=== PATIENT | male | born 1960 | race African-American/Black ===

== ENCOUNTER 2024-12-18 06:31 | Inpatient (IN) | payer OTHER, MEDICAID ==
[2024-12-18] VITALS (8 sets, daily range): BP systolic 115–153; BP diastolic 53–67; PULSE 22–94; RESP 18–20; TEMP 97.6–98.2; O2SAT 74–100
[~2024-12-18] VITALS: Ht 185.4 cm; Wt 105.5 kg
[2024-12-18] MEDS ORDERED: ALBUTEROL SULF 2.5 MG/0.5ML(0.5%) NEB SOLN ONE (06:33)
[2024-12-18] MEDS ORDERED: IPRATROPIUM BROM 0.5 MG/2.5ML INH SOL ONE (06:34)
--- NOTE | 2024-12-18 06:42 | ED.PDOC ---
SOB-HPI HPI Comments 64 y.o male with PMHx of COPD, presents to the ED for a chief complaint of SOB associated with a productive cough and bilateral leg swelling that started one week ago. Rapid response page was activated at the main lobby entrance where patient entered, was found with an SPO2 of 82% on room air and was placed on a breathing treatment immediately by the respiratory team. Patient does admit to smoking tobacco and denies any substance use. Chief Complaint: Shortness of Breath Time Seen by MD: 06:30 Reviewed notes: Nurses Notes, Medications, Allergies Information Source: Patient Mode of Arrival: Wheelchair Severity: Moderate Timing: Weeks (1) Duration: Since onset PE Risk Factors: None History of: COPD Modifying Factors: Nothing Associated Signs and Symptoms: Cough, Leg Swelling If cough with SOB: Productive Past Medical History PAST MEDICAL HISTORY: COPD Family History Family History: Reviewed,noncontributory to illness Social History Smoker: Cigarettes Alcohol: Denies ETOH Use Drugs: Denies Drug Use Lives In: Home Constitutional: denies: chills, diaphoresis, fatigue, fever, malaise, sweats, weakness, others EENTM: denies: blurred vision, double vision, ear bleeding, ear discharge, ear drainage, ear pain, ear ringing, eye pain, eye redness, hearing loss, mouth pain, mouth swelling, nasal discharge, nose bleeding, nose congestion, nose pain, photophobia, tearing, throat pain, throat swelling, voice changes, others Respiratory: reports: cough, SOB at rest, shortness of breath, SOB with excertion; denies: hemoptysis, orthopnea, stridor, wheezing, others Cardiovascular: denies: chest pain, dizzy spells, diaphoresis, Dyspnea on exertion, edema, irregular heart beat, left arm pain, lightheadedness, palpitations, PND, syncope, others Gastrointestinal: denies: abdomen distended, abdominal pain, blood streaked bowels, constipated, diarrhea, dysphagia, difficulty swallowing, hematemesis, melena, nausea, poor appetite, poor fluid intake, rectal bleeding, rectal pain, vomiting, others Genitourinary: denies: burning, dysuria, flank pain, frequency, hematuria, incontinence, penile discharge, penile sore, pain, testicle pain, testicle swelling, urgency, others Neurological: denies: dizziness, fainting, headache, left sided numbness, left sided weakness, numbness, paresthesia, pre-existing deficit, right sided numbness, right sided weakness, seizure, speech problems, tingling, tremors, weakness, others Musculoskeletal: reports: others (Bilateral lower leg swelling ); denies: back pain, gout, joint pain, joint swelling, muscle pain, muscle stiffness, neck pain Integumetry: denies: bruises, change in color, change in hair/nails, dryness, laceration, lesions, lumps, rash, wounds, others Allergic/Immunocompromised: denies: Difficulty Healing, Frequent Infections, Hives, Itching, others Hematologic/Lymphatic: denies: anemia, blood clots, easy bleeding, easy bruising, swollen glands, others Endocrine: denies: excessive hunger, excessive sweating, excessive thirst, excessive urination, flushing, intolerance to cold, intolerance to heat, unexplained weight gain, unexplained weight loss, others Psychiatric: denies: anxiety, bipolar disorder, depression, hopeless, panic disorder, schizophrenia, sleepless, suicidal, others All Other Systems: Reviewed and Negative Physical Exam General Appearance: Moderate Distress HEENT: Normal ENT Inspection, Pharynx Normal, TMs Normal Neck: Full Range of Motion, Non-Tender, Normal, Normal Inspection Respiratory: Accessory Muscle Use, Respiratory Distress, Wheezing Cardiovascular: Tachycardia Breast Exam: Deferred Gastrointestinal: No Organomegaly, Non Tender, No Pulsatile Mass, Normal Bowel Sounds, Soft Genitalia: Deferred Pelvic: Deferred Rectal: Deferred Extremities: No calf tenderness, Pedal edema Musculoskeletal : Apperance: Normal Neurologic: Alert, manager rn case II-XII nml as Tested, No Motor Deficits, Normal Affect, Normal Mood, No Sensory Deficits Cerebellar Function: Normal Reflexes: Normal Skin: Dry, Normal Color, Warm Peripheral Pulses: 3+ Radial (R), 3+ Radial (L) Lymphatic: No Adenopathy EKG EKG : Pulse Rate (adult): 91 Cardiac Rhythm: NSR Block: LBBB Was a procedure done? Was a procedure done?: No Differential Dx Differential Diagnosis: Anxiety, Asthma, Bronchitis, CHF, COPD, Pneumonia, Respiratory Distress, URI X-Ray, Labs, Meds, VS Vital Signs Date Time Temp Pulse Resp B/P (MAP) Pulse Ox O2 Delivery O2 Flow Rate FiO2 12/18/24 06:54 91 12/18/24 06:39 91 12/18/24 06:31 82 Room Air* 0 21 12/18/24 06:31 97.9 104 32 199/105 (136) 82 97.9 12/18/24 06:31 32 82 Room Air* 0 21 Lab Test 12/18/24 07:05 12/18/24 06:46 Range/Units Lactic Acid Level Pending Troponin I High Sensitivity Pending 18 </=54 ng/L White Blood Count 6.7 4.4-10.8 10^3/uL Red Blood Count 4.84 4.5-5.90 10^6/uL Hemoglobin 13.7 13.5-17.5 g/dL Hematocrit 42.7 41.0-53.0 % Mean Corpuscular Volume 88.3 80.0-100.0 fL Mean Corpuscular Hemoglobin 28.3 28.0-32.0 pg Mean Corpuscular Hemoglobin Concent 32.0 32.0-36.0 g/dL Red Cell Distribution Width 15.3 H 11.8-14.3 % Platelet Count 211 140-450 10^3/uL Mean Platelet Volume 7.6 6.9-10.8 fL Neutrophils (%) (Auto) 37.3 37.0-80.0 % Lymphocytes (%) (Auto) 47.7 10.0-50.0 % Monocytes (%) (Auto) 10.2 0.0-12.0 % Eosinophils (%) (Auto) 3.9 0.0-7.0 % Basophils (%) (Auto) 0.9 0.0-2.0 % Neutrophils # (Auto) 2.5 1.6-8.6 10 ^3/uL Lymphocytes # (Auto) 3.2 0.4-5.4 10 ^3/uL Monocytes # (Auto) 0.7 0-1.3 10 ^3/uL Eosinophils # (Auto) 0.3 0-0.8 10 ^3/uL Basophils # (Auto) 0.1 0-0.2 10 ^3/uL Nucleated Red Blood Cells 0.2 % Sodium Level 140 136-145 mmol/L Potassium Level 4.1 3.5-5.1 mmol/L Chloride Level 104 98-107 mmol/L Carbon Dioxide Level 28 20-31 mmol/L Anion Gap 8 5-15 Blood Urea Nitrogen 15 9-23 mg/dL Creatinine 1.22 0.700-1.30 mg/dL Glomerular Filtration Rate Calc 65 >90 mL/min BUN/Creatinine Ratio 12.3 10.0-20.0 Serum Glucose 110 H 74-106 mg/dL Calcium Level 9.8 8.7-10.4 mg/dL Current Medications Medications (Trade) Dose Ordered Sig/Lala Route Start Time Stop Time Status Last Admin Methylprednisolone Sodium Succinate (Solu Medrol) 125 mg ONCE ONCE IV 12/18/24 06:45 12/18/24 06:46 DC 12/18/24 06:45 Ceftriaxone Sodium 50 ml @ 100 mls/hr ONCE ONCE IV 12/18/24 06:45 12/18/24 07:14 DC 12/18/24 06:45 Azithromycin 250 ml @ 125 mls/hr ONCE ONCE IV 12/18/24 06:45 12/18/24 08:44 12/18/24 06:45 Albuterol (Ventolin Medneb) 20 mg ONCE ONCE NEB 12/18/24 07:00 12/18/24 07:01 DC 12/18/24 07:56 Ipratropium [place] (Atrovent Medneb) 1 mg ONCE ONCE NEB 12/18/24 07:00 12/18/24 07:01 DC 12/18/24 07:55 Patient alert. Shortness a breath. Placed on oxygen. Blood pressure elevated. Establish intravenous access. Was given steroid. Was given breathing treatment. Was given Rocephin. Was given azithromycin. Was given labetalol. Has pedal edema. Possible hypertensive cardiomyopathy. Continues to smoke cigarettes. Counseled patient on effects of smoking cigarettes for 15 minutes. Reviewed his history. Explained to the patient. Continue monitoring. X-Ray, Labs, Meds, VS Comment EXAM: XR Chest, 1 View CLINICAL INDICATION: sob TECHNIQUE: Frontal view of the chest. COMPARISON: None FINDINGS: LUNGS AND PLEURAL SPACES: Unremarkable. No consolidation. No pneumothorax. HEART: Unremarkable. No cardiomegaly. MEDIASTINUM: Unremarkable. Normal mediastinal contour. BONES/JOINTS: Unremarkable. No acute fracture. OTHER FINDINGS: . None. IMPRESSION: No acute cardiopulmonary process. Time of 1ST Reevaluation: 07:00 Reevaluation 1ST: Unchanged Patient Education/Counseling: Diagnosis, Treatment, Prognosis Family Education/Counseling: No Family Present Departure 1 Departure Time of Disposition: 06:53 Impression: Primary Impression: Acute respiratory failure Qualified Codes: J96.01 - Acute respiratory failure with hypoxia Additional Impressions: COPD exacerbation Hypertensive emergency Pneumonitis Disposition: ADMITTED INPATIENT Admit to: Med Surg Condition: Guarded Critical Care Note Critical Care Time?: Yes (90 min-critical care time only) Stability Stability form required: No I personally scribed for JD GRIFFITHS MD ([email or web address]) on 12/18/24 at 06:42. Electronically submitted by Charline Travis ([facility]). I personally scribed for JD GRIFFITHS MD ([email or web address]) on 12/18/24 at 08:08. Electronically submitted by Charline Travis ([facility]). I personally scribed for JD GRIFFITHS MD ([email or web address]) on 12/18/24 at 08:15. Electronically submitted by Charline Travis ([facility]). JD GRIFFITHS MD Dec 18, 2024 06:42
[2024-12-18] MEDS: methylPREDNISolone SOD SUCC 125 MG/2 ML VL IV ONE (06:45)
[2024-12-18] MEDS: ALBUTEROL SULF 2.5 MG/0.5ML(0.5%) NEB SOLN NEB ONE ×2 (06:45→07:56)
[2024-12-18] MEDS: cefTRIAXone 1GM/50ML D5W 50 ML IV ONE (06:45)
[2024-12-18] MEDS: AZITHROMYCIN 500MG/ 250ML 250 ML IV ONE (06:45)
[2024-12-18] MEDS: IPRATROPIUM BROM 0.5 MG/2.5ML INH SOL NEB ONE ×2 (06:45→07:55)
--- NOTE | 2024-12-18 07:20 | DVH ---
EXAM: XR Chest, 1 View CLINICAL INDICATION: sob TECHNIQUE: Frontal view of the chest. COMPARISON: None FINDINGS: LUNGS AND PLEURAL SPACES: Unremarkable. No consolidation. No pneumothorax. HEART: Unremarkable. No cardiomegaly. MEDIASTINUM: Unremarkable. Normal mediastinal contour. BONES/JOINTS: Unremarkable. No acute fracture. OTHER FINDINGS: . None. IMPRESSION: No acute cardiopulmonary process.
[2024-12-18 07:22] LABS: Basophils # (auto) 0.1 10 ^3/uL (0-0.2); Basophils % (auto) 0.9 % (0.0-2.0); Eosinophils # (auto) 0.3 10 ^3/uL (0-0.8); Eosinophils % (auto) 3.9 % (0.0-7.0); Hematocrit 42.7 % (41.0-53.0); Hemoglobin 13.7 g/dL (13.5-17.5); Lymphocytes # (auto) 3.2 10 ^3/uL (0.4-5.4); Lymphocytes % (auto) 47.7 % (10.0-50.0); Mean Corpuscular Hemoglobin 28.3 pg (28.0-32.0); Mean Corpuscular Volume 88.3 fL (80.0-100.0); Monocytes # (auto) 0.7 10 ^3/uL (0-1.3); Monocytes % (auto) 10.2 % (0.0-12.0); Neutrophils # (auto) 2.5 10 ^3/uL (1.6-8.6); Neutrophils % (auto) 37.3 % (37.0-80.0); Nucleated Red Blood Cells % 0.2 %; Platelet Count (auto) 211 10^3/uL (140-450); Red Blood Cells 4.84 10^6/uL (4.5-5.90); Red Cell Distribution Width 15.3 % (11.8-14.3); White Blood Cell 6.7 10^3/uL (4.4-10.8)
[2024-12-18 07:29] LABS: Chloride 104 mmol/L (98-107); Potassium 4.1 mmol/L (3.5-5.1); Sodium 140 mmol/L (136-145)
[2024-12-18 07:30] LABS: Anion Gap 8 (5-15); Carbon Dioxide 28 mmol/L (20-31)
[2024-12-18 07:31] LABS: Calcium 9.8 mg/dL (8.7-10.4)
[2024-12-18 07:36] LABS: BUN/Creatinine Ratio 12.3 (10.0-20.0); Blood Urea Nitrogen 15 mg/dL (9-23); Glucose 110 mg/dL (74-106)
[2024-12-18 08:32] LABS: Lactic Acid w/Reflex 2.1 mmol/L (0.4-2.0)
[2024-12-18] MEDS: MAGNESIUM SULFATE 1GM/100ML 100 ML IV ONE (09:06)
[2024-12-18] MEDS ORDERED: ACETAMINOPHEN 325 MG TAB PO PRN (09:15)
[2024-12-18] MEDS ORDERED: ONDANSETRON HCL 4 MG/2 ML VIAL IV PRN (09:15)
[2024-12-18] MEDS ORDERED: HYDROcodone-ACET 5/325MG TAB PO PRN (09:15)
[2024-12-18] MEDS ORDERED: DOCUSATE SOD 100 MG CAP PO PRN (09:15)
--- NOTE | 2024-12-18 09:24 | DVHHP2 ---
History of Present Illness Reason for Visit: Shortness of breath History of Present Illness Be Escoto is a 64-year-old male with past medical history of COPD, who came in due to shortness of breath. Patient states he was awoken with a feeling like he couldn't breath. He states he has a history of COPD, but has been out of his inhales for months. he states he is not good with following up with a primary care provider. He is from [place], and is only here visiting. When patient arrived to ER he was short of breath and visibly struggling to breath. He was hypoxic on RA at 82% with increased work of breathing. He was immediately given oxygen and breathing treatments. On my assessment he is on 3L N/C resting comfortably, with no increased work of breathing. He does have bilateral wheezing, worse on left side. Initial lactic acid level was 2.1, repeat was 3.5. IV fluid resuscitation was given, IV antibiotics had been given by ER, blood cultures and UA ordered. Pulmonary: COPD Past Surgical History: None Family History: None Smoke: <1 pack per day ALCOHOL: rare Drugs: Cocaine Lives: with Family Domestic Violence: Neg Review of Systems Constitutional: No: Fever, Chills, Sweats, Weakness, Malaise, Other Eyes: No: Pain, Vision change, Conjunctivae inflammation, Eyelid inflammation, Other, Redness ENT: No: Ear pain, Ear discharge, Nose pain, Nose discharge, Nose congestion, Mouth pain, Mouth swelling, Throat pain, Throat swelling, Other Respiratory: Cough, Shortness of breath; No: Dry, SOB with excertion, Wheezing, Hemoptysis, Pleuritic Pain, Sputum, Wheezing, Other Cardiovascular: No: Chest Pain, Palpitations, Orthopnea, Paroxysmal Noc. Dyspne a, Edema, Lt Headedness, Other Gastrointestinal: No: Nausea, Vomiting, Abdominal Pain, Diarrhea, Constipation, Melena, Hematochezia, Other Genitourinary: No Dysuria, No Frequency, No Incontinence, No Hematuria, No Retention, No Other Musculoskeletal: No: other, neck pain, shoulder pain, arm pain, back pain, hand pain, leg pain, foot pain Skin: No: Rash, Lesions, Jaundice, Bruising, Other Neurological: No: Weakness, Numbness, Incoordination, Change in speech, Confusion, Seizures, Other Allergies: Coded Allergies: NO KNOWN ALLERGIES (Unverified , 12/18/24) Exam Vital Signs Vital Signs Date Time Temp Pulse Resp B/P (MAP) Pulse Ox O2 Delivery O2 Flow Rate FiO2 12/18/24 07:35 97.6 88 146/75 (98) 95 97.6 12/18/24 07:35 Nasal Cannula* 3 32 12/18/24 06:31 32 General Appearance: Alert, Oriented X3, Cooperative, mild distress HEENT: Atraumatic, PERRLA Respiratory: Other (wheezing) Cardiovascular: Regular rate, Normal S1, Normal S2, No murmurs Abdominal: Normal bowel sounds, Soft, No tenderness, No hepatospenomegaly Extremities: No clubbing, No cyanosis, Normal pulses, No tenderness/swelling, Other (bilateral lower extremity edema) Skin: No rashes, No breakdown, No significant lesion Neuro: Normal gait, Normal speech, Strength at 5/5 X4 ext, Normal tone Psych/Mental Status: Mental status NL, Mood NL Labs/Xrays Labs Test 12/18/24 07:50 12/18/24 06:46 Range/Units Lactic Acid Level 2.1 *H 0.4-2.0 mmol/L Troponin I High Sensitivity 14 </=54 ng/L White Blood Count 6.7 4.4-10.8 10^3/uL Red Blood Count 4.84 4.5-5.90 10^6/uL Hemoglobin 13.7 13.5-17.5 g/dL Hematocrit 42.7 41.0-53.0 % Mean Corpuscular Volume 88.3 80.0-100.0 fL Mean Corpuscular Hemoglobin 28.3 28.0-32.0 pg Mean Corpuscular Hemoglobin Concent 32.0 32.0-36.0 g/dL Red Cell Distribution Width 15.3 H 11.8-14.3 % Platelet Count 211 140-450 10^3/uL Mean Platelet Volume 7.6 6.9-10.8 fL Neutrophils (%) (Auto) 37.3 37.0-80.0 % Lymphocytes (%) (Auto) 47.7 10.0-50.0 % Monocytes (%) (Auto) 10.2 0.0-12.0 % Eosinophils (%) (Auto) 3.9 0.0-7.0 % Basophils (%) (Auto) 0.9 0.0-2.0 % Neutrophils # (Auto) 2.5 1.6-8.6 10 ^3/uL Lymphocytes # (Auto) 3.2 0.4-5.4 10 ^3/uL Monocytes # (Auto) 0.7 0-1.3 10 ^3/uL Eosinophils # (Auto) 0.3 0-0.8 10 ^3/uL Basophils # (Auto) 0.1 0-0.2 10 ^3/uL Nucleated Red Blood Cells 0.2 % Sodium Level 140 136-145 mmol/L Potassium Level 4.1 3.5-5.1 mmol/L Chloride Level 104 98-107 mmol/L Carbon Dioxide Level 28 20-31 mmol/L Anion Gap 8 5-15 Blood Urea Nitrogen 15 9-23 mg/dL Creatinine 1.22 0.700-1.30 mg/dL Glomerular Filtration Rate Calc 65 >90 mL/min BUN/Creatinine Ratio 12.3 10.0-20.0 Serum Glucose 110 H 74-106 mg/dL Calcium Level 9.8 8.7-10.4 mg/dL EXAM: XR Chest, 1 View FINDINGS: LUNGS AND PLEURAL SPACES: Unremarkable. No consolidation. No pneumothorax. HEART: Unremarkable. No cardiomegaly. MEDIASTINUM: Unremarkable. Normal mediastinal contour. BONES/JOINTS: Unremarkable. No acute fracture. OTHER FINDINGS: . None. IMPRESSION: No acute cardiopulmonary process. Assessment/Plan Assessment/Plan Assessment: COPD exacerbation, Hypoxemia, Lactic acidosis, Illicit drug use, Plan: Admit to Med-Surg, Supplemental oxygen as needed, Breathing treatments, IV steroids, Room air ABG, IV hydration, IV antibiotics, UA, Urine culture, Blood culture, Plan discussed with: Patient My Orders Orders - ALPA PORTILLO Procedure Category Date Status Time Admit ADMIT 12/18/24 Verified 09:10 Code Status CODE 12/18/24 Verified 09:10 2 Gm Sodium Diet DIET 12/18/24 Verified Breakfast Hydrocodone-Acet PHA 12/18/24 Verified 5/325mg Tab ([place] 09:15 Date of Service: Dec 18, 2024 Billing Provider: ALPA PORTILLO Common Visit Codes: [id number] INP/OBS CARE (MOD) ALPA PORTILLO Dec 18, 2024 09:24
[2024-12-18 11:33] LABS: Base Excess -2.6 mmol/L (-2.0-3.0)
[2024-12-18] MEDS: IPRATROPIUM BROM 0.5 MG/2.5ML INH SOL NEB SCH (12:00)
[2024-12-18] MEDS: ALBUTEROL SULF 2.5 MG/0.5ML(0.5%) NEB SOLN NEB SCH (12:00)
[2024-12-18] MEDS ORDERED: ARIP20TA4 PO (13:34)
[2024-12-18] MEDS ORDERED: TRAZ-228 PO (13:34)
[2024-12-18 14:54] LABS: Urine Bacteria FEW /hpf (None Seen); Urine Blood Negative /uL (Negative); Urine Clarity Clear (Clear); Urine Color Light-Yellow (Yellow); Urine Protein, UAD Negative (Negative); Urine Specific Gravity 1.024 (1.001-1.035); Urine Squamous Epithelial Cell FEW /hpf (<5); Urine Urobilinogen Normal (Negative); Urine WBC 1 /HPF (0-3); Urine pH 5.5 (5.0-9.0)
[2024-12-18 15:00] LABS: Amphetamine Screen, Urine Neg (NEGATIVE); Barbiturate Scree,Urine Neg (NEGATIVE); Benzodiazephine Screen, Urine Neg (NEGATIVE); Cocaine Screen, Urine Neg (NEGATIVE)
[2024-12-18 15:06] LABS: Cannabinoid Screen, Urine Neg (NEGATIVE); Opiate Scree,Urine Neg (NEGATIVE); Phencyclidine Screen, Urine Neg (NEGATIVE)
[2024-12-18] MEDS: SODIUM CHLORIDE 0.9% 3,000 ML IV ONE (16:05)
[2024-12-18] MEDS: FAMOTIDINE 20 MG TAB PO ONE (16:05)
[2024-12-18] MEDS: ENOXAPARIN SOD 40 MG/0.4 ML SYRINGE SC ONE (16:06)
--- NOTE | 2024-12-18 17:49 | DVHSR ---
APPROVED REPORT EXAM: Two-dimensional and M-mode echocardiogram with Doppler and color Doppler. Blood Pressure: 146/75 mmHg INDICATION bilateral lower extremity edema, RO structural defect RISK FACTORS Height: 6'2, Weight: 210 DIMENSIONS LVDd4.1 (3.8-5.7cm)LA (2D)3.6 (1.9-4.0cm)Aortic Root3.3 (2.0-3.7cm) LVDs2.7 (2.5-4.0cm)LA (MM) (1.9-4.0cm)Aortic Cusp Exc1.9 (1.5-2.0cm) EF (%) 55.0 (55-70%)Rt. Atrium3.3 (1.9-4.0cm)Asc. Aorta cm IVSd1.0 (0.7-1.1cm)RV (D)3.5 (1.8-2.4cm) PWd1.1 (0.7-1.1cm) Mitral Valve MitralMitral Stenosis E wave0.74m/sMV Mean GR.mmHg A wave0.86m/sMV Peak GR.88mmHg E/A ratio0.92D MVAcm2 DECEL [id number] 1/2 Tim[place] Aortic Valve Aortic ValveAortic Stenosis V11.16m/[place] Mean GR.7mmHg V21.72m/[place] Peak GR.12mmHg LVOT Diameter2.2 (1.8-2.4cm)Doppler AVA2.56cm2 Pulmonic Valve V21.26m/s Tricuspid Valve TR Velocity2.51m/s [id number] Conclusion lvef 65% moderate LVH normal RV function no severe valve abnormaliteis noted
[2024-12-18] MEDS: methylPREDNISolone SOD SUCC 125 MG/2 ML VL IV SCH (22:17)
[2024-12-19] VITALS (10 sets, daily range): BP systolic 129–151; BP diastolic 59–77; PULSE 65–80; RESP 14–20; TEMP 97.6–98; O2SAT 94–100
[2024-12-19 07:24] LABS: Basophils # (auto) 0 10 ^3/uL (0-0.2); Basophils % (auto) 0.1 % (0.0-2.0); Eosinophils # (auto) 0 10 ^3/uL (0-0.8); Hematocrit 37.2 % (41.0-53.0); Hemoglobin 12.4 g/dL (13.5-17.5); Lymphocytes % (auto) 7.6 % (10.0-50.0); Mean Corpuscular Hemoglobin 28.5 pg (28.0-32.0); Mean Corpuscular Hgb Conc. 33.3 g/dL (32.0-36.0); Mean Corpuscular Volume 85.7 fL (80.0-100.0); Monocytes # (auto) 0.5 10 ^3/uL (0-1.3); Monocytes % (auto) 3.3 % (0.0-12.0); Neutrophils # (auto) 12.3 10 ^3/uL (1.6-8.6); Platelet Count (auto) 183 10^3/uL (140-450); Red Blood Cells 4.34 10^6/uL (4.5-5.90); Red Cell Distribution Width 15.1 % (11.8-14.3); White Blood Cell 13.8 10^3/uL (4.4-10.8)
[2024-12-19 07:30] LABS: Alanine Aminotransferase 16 U/L (7-40); Albumin 3.9 g/dL (3.2-4.8); Alkaline Phosphatase 91 U/L (46-116); Anion Gap 8 (5-15); BUN/Creatinine Ratio 17.5 (10.0-20.0); Blood Urea Nitrogen 18 mg/dL (9-23); Calcium 9.7 mg/dL (8.7-10.4); Carbon Dioxide 24 mmol/L (20-31); Chloride 106 mmol/L (98-107); Sodium 138 mmol/L (136-145); Total Protein 6.4 g/dL (5.7-8.2)
[2024-12-19 07:31] LABS: Bilirubin, Total 0.4 mg/dL (0.2-1.0)
[2024-12-19 07:32] LABS: Aspartate Aminotransferase 12 U/L (13-40); Glucose 153 mg/dL (74-106); Potassium 5.2 mmol/L (3.5-5.1)
[2024-12-19] MEDS ORDERED: ALBUTEROL SULF 2.5 MG/0.5ML(0.5%) NEB SOLN NEB ONE (09:30)
[2024-12-19] MEDS: ENOXAPARIN SOD 40 MG/0.4 ML SYRINGE SC SCH (09:52)
[2024-12-19] MEDS: FAMOTIDINE 20 MG TAB PO SCH (09:52)
[2024-12-19] MEDS: cefTRIAXone 1GM/50ML D5W 50 ML IV SCH (09:55)
[2024-12-19] MEDS: AZITHROMYCIN 500MG/ 250ML 250 ML IV SCH (09:56)
[2024-12-19] MEDS ORDERED: methylPREDNISolone SOD SUCC 125 MG/2 ML VL IV SCH (10:00)
[2024-12-19] MEDS: FUROSEMIDE 20 MG/2 ML VIAL IV ONE (10:00)
[2024-12-19] MEDS: ALBUTEROL SULF 2.5 MG/0.5ML(0.5%) NEB SOLN NEB ONE (10:04)
[2024-12-19] MEDS: SODIUM CHLORIDE 0.9% 1,000 ML IV SCH (10:12)
--- NOTE | 2024-12-19 11:11 | ECG ---
[facility] Test Date: 2024-12-18 Test Time: 06:39:54 Pat Name: LEILA ASHER Department: ED Room: 0284 B Gender: M Barrel Straightener: KASIA : 1960 Requested By: JD GRIFFITHS Order Number: [id number] Reading MD: Chris Flowers Measurements Intervals [place] Rate: 91 P: 78 IL: 177 QRS: -75 QRSD: 142 T: 62 QT: 388 QTc: 478 Interpretive Statements Sinus rhythm Probable left atrial enlargement RBBB and LAFB Inferior infarct, old Lateral leads are also involved Baseline wander in lead(s) II,III,aVF Electronically Signed On 12-20-2024 13:05:34 PDT by Chris Flowers Please click the below link to view image of tracing.
[2024-12-19] MEDS ORDERED: DOXY1CAP57 PO (16:17)
[2024-12-19] MEDS ORDERED: METH4PAK PO (16:17)
[2024-12-19] MEDS ORDERED: DEXT1SYP9 PO (16:17)
[2024-12-19] MEDS ORDERED: ALBU108A5 IN (16:28)
[2024-12-19] MEDS ORDERED: TIOTCAP IN (16:28)
--- NOTE | 2024-12-19 16:30 | DVHDS2 ---
Discharge Summary Date of Admission Dec 18, 2024 at 09:10 Date of Discharge: Dec 19, 2024 Labs/Diagnostic Data: Laboratory Results Test 12/19/24 14:05 12/19/24 05:56 12/19/24 05:39 12/18/24 14:30 Potassium Level 4.0 mmol/L (3.5-5.1) White Blood Count 13.8 10^3/uL (4.4-10.8) Red Blood Count 4.34 10^6/uL (4.5-5.90) Hemoglobin 12.4 g/dL (13.5-17.5) Hematocrit 37.2 % (41.0-53.0) Mean Corpuscular Volume 85.7 fL (80.0-100.0) Mean Corpuscular Hemoglobin 28.5 pg (28.0-32.0) Mean Corpuscular Hemoglobin Concent 33.3 g/dL (32.0-36.0) Red Cell Distribution Width 15.1 % (11.8-14.3) Platelet Count 183 10^3/uL (140-450) Mean Platelet Volume 7.9 fL (6.9-10.8) Neutrophils (%) (Auto) 89.0 % (37.0-80.0) Lymphocytes (%) (Auto) 7.6 % (10.0-50.0) Monocytes (%) (Auto) 3.3 % (0.0-12.0) Eosinophils (%) (Auto) 0.0 % (0.0-7.0) Basophils (%) (Auto) 0.1 % (0.0-2.0) Neutrophils # (Auto) 12.3 10 ^3/uL (1.6-8.6) Lymphocytes # (Auto) 1.0 10 ^3/uL (0.4-5.4) Monocytes # (Auto) 0.5 10 ^3/uL (0-1.3) Eosinophils # (Auto) 0 10 ^3/uL (0-0.8) Basophils # (Auto) 0 10 ^3/uL (0-0.2) Nucleated Red Blood Cells 0.0 % Sodium Level 138 mmol/L (136-145) Chloride Level 106 mmol/L (98-107) Carbon Dioxide Level 24 mmol/L (20-31) Anion Gap 8 (5-15) Blood Urea Nitrogen 18 mg/dL (9-23) Creatinine 1.03 mg/dL (0.700-1.30) Glomerular Filtration Rate Calc 80 mL/min (>90) BUN/Creatinine Ratio 17.5 (10.0-20.0) Serum Glucose 153 mg/dL (74-106) Calcium Level 9.7 mg/dL (8.7-10.4) Total Bilirubin 0.4 mg/dL (0.2-1.0) Aspartate Amino Transferase (AST) 12 U/L (13-40) Alanine Aminotransferase (ALT) 16 U/L (7-40) Alkaline Phosphatase 91 U/L (46-116) Total Protein 6.4 g/dL (5.7-8.2) Albumin 3.9 g/dL (3.2-4.8) Lactic Acid Level 1.5 mmol/L (0.4-2.0) Urine Color Light-yellow (Yellow) Urine Clarity Clear (Clear) Urine pH 5.5 (5.0-9.0) Urine Specific [place] 1.024 (1.001-1.035) Urine Protein Negative (Negative) Urine Ketones Trace (Negative) Urine Blood Negative /uL (Negative) Urine Nitrite Negative (Negative) Urine Bilirubin Negative (Negative) Urine Urobilinogen Normal mg/dL (Negative) Urine Leukocyte Esterase Negative /uL (Negative) Urine RBC None seen /hpf (0 - 3) Urine Microscopic WBC 1 /HPF (0-3) Urine Squamous Epithelial Cells Few /hpf (<5) Urine Bacteria Few /hpf (None Seen) Urine Glucose 4+ mg/dL (Normal) Urine Opiates Screen Neg (NEGATIVE) Urine Fentanyl Screen Neg (NEGATIVE) Urine Barbiturates Screen Neg (NEGATIVE) Urine Phencyclidine Screen Neg (NEGATIVE) Urine Amphetamines Screen Neg (NEGATIVE) Urine Benzodiazepines Screen Neg (NEGATIVE) Urine Cocaine Screen Neg (NEGATIVE) Urine Cannabinoids Screen Neg (NEGATIVE) Test 12/18/24 11:25 12/18/24 09:58 Blood Gas Specimen Type Arterial Blood Gas Sample Site Right radial Blood Gas Patient Temperature 37.0 Arterial Blood Date Drawn [id number] Arterial Blood pH 7.359 (7.350-7.450) Arterial Blood Partial Pressure CO2 41.2 mmHg (35.0-48.0) Arterial Blood Partial Pressure O2 59.1 mmHg (83.0-108.0) Arterial Blood HCO3 22.7 mmol/L (21.0-28.0) Arterial Blood Oxygen Saturation 88.9 % (94.0-98.0) Arterial Blood Base Excess -2.6 mmol/L (-2.0-3.0) Arterial Blood Oxyhemoglobin 88.0 % (94.0-98.0) Arterial Blood Carboxyhemoglobin 0.4 % (0.5-1.5) Arterial Blood Methemoglobin 0.6 % (0.0-1.5) Chas Test Yes Blood Gas Total Hemoglobin 14.10 g/dL (13.5-17.5) Blood Gas Liter Flow 0.00 Blood Gas Modality Room air FiO2 % 21.0 Troponin I High Sensitivity 14 ng/L (</=54) Other Laboratory Tests 12/19/24 14:05 12/19/24 05:56 Brief Hx & Hospital Course: Final diagnoses: Acute hypoxic respiratory failure COPD exacerbation Hypoxemia Lactic acidosis 64 year old male was admitted for SOB, he had COPD and hypoxia He was given IV steroids, O2, IV antibiotics and med nebs Overnight, he is feeling better He is stable to go home He already has home O2 f/u with PCP KEIRA Condition at Discharge: Stable Final Diagnosis/Problems List COPD exacerbation Discharge Disposition: Home SNF Discharge Will this Physician continue t: No Discharge Instruct/Medications Diet: Cardiac 2g Na,low cholest Activity: No Restrictions, As Tolerated Follow Up/Referral: PCP KEIRA Medications: Medrol dose pack Doxycycline Robitussin DM prn Discharge Statement: "Patient was advised to return to the ER or call 911 if any headaches, dizziness, shortness of breath, chest pain, abdominal pain, bleeding, fevers, or worsening of medical condition. Patient was counseled about treatment plan, medications, possible side effects, patientverbalized understanding. All questions were answered to the best of my ability. This discharge took greater then 30 minutes in planning, reviewing documentation, counseling the patient, and discussing with other team members." ASSESSMENT ASSESSMENT Assessment COPD exacerbation Date of Service: Dec 19, 2024 Billing Provider: MIAN DAVIS MD Common Visit Codes: NOT BILLABLE MIAN DAVIS MD Dec 19, 2024 16:30
--- NOTE | 2024-12-19 23:05 | DVHINCON2 ---
Date of service: Dec 19, 2024 Referring Physician Aneudy Flores MD Reason for Consultation Acute hypoxic respiratory failure and COPD exacerbation History of Present Illness A 64-year-old man with past medical history of COPD, who presented to ED on 12/18/24 with c/o shortness of breath. Patient states he was awoken with a feeling like he could not breathe. He states he has been out of his inhaler for months. Pt does not follow with PCP regularly. He is from [place] and is only here visiting. When patient arrived to ED, he was short of breath and visibly struggling to breathe. He was hypoxic on RA at 82% with increased work of breathing, bilateral wheezing. He was immediately given oxygen and breathing treatments. Pt was subsequently on 3L N/C resting comfortably, with no increased work of breathing. Initial lactic acid level was 2.1, repeat was 3.5. IV fluid resuscitation and IV antibiotics were given and pt was admitted for further care. Pulmonary consultation is requested for evaluation and management due to the above findings. Review of Systems: 14-point review of systems negative unless otherwise noted above. Past Medical History: COPD. Past Surgical History: None Medications: Reviewed. Allergies: No known drug allergies. Family History: No family history of premature CAD. No family history of lung disorders. Social History: Smoker - smokes <1 pack per day Rare alcohol use. Admits to cocaine use. Family History: Patient reports no known family medical history. Allergies: Coded Allergies: NO KNOWN ALLERGIES (Unverified , 12/18/24) Home Meds Active Scripts Tiotropium [place] Monohydrate (Spiriva Handihaler) 18 Mcg Cap, 18 MCG IN DAILY for 30 Days, #30 CAP Prov:ANEUDY FLORES MD 12/19/24 Albuterol Sulfate (Albuterol Sulfate Hfa) 108 Mcg/Act Aer, 216 MCG IN Q4HP PRN, #18 GM Prov:ANEUDY FLORES MD 12/19/24 Dextromethorphan-Guaifenesin (Robitussin-Dm) 10 Ml Sr, 10 ML PO Q6HP PRN, #120 ML Prov:ANEUDY FLORES MD 12/19/24 Doxycycline Monohydrate (Doxycycline Monohydrate) 100 Mg Cap, 1 CAP PO BID, #14 CAP Prov:ANEUDY FLORES MD 12/19/24 Methylprednisolone (Medrol Dosepak) 4 Mg Brannon, 4 MG PO UD, #21 TAB UAD Prov:ANEUDY FLORES MD 12/19/24 Reported Medications Aripiprazole (Abilify) 20 Mg Tab, PO, TAB 12/18/24 Trazodone Hcl (Trazodone Hcl) 100 Mg Tab, PO, TAB 12/18/24 Current Medications Current Medications Medications (Trade) Dose Ordered Sig/Lala Route PRN Reason Start Time Stop Time Status Last Admin Methylprednisolone Sodium Succinate (Solu Medrol) 40 mg BID IV 12/19/24 10:00 12/18/24 12:18 DC Ceftriaxone Sodium 50 ml @ 100 mls/hr DAILY@09 IV 12/19/24 09:00 12/19/24 18:52 DC 12/19/24 09:55 Azithromycin 250 ml @ 125 mls/hr DAILY IV 12/19/24 10:00 12/19/24 18:52 DC 12/19/24 09:56 Famotidine (Pepcid Tablet) 20 mg DAILY PO 12/19/24 10:00 12/19/24 18:52 DC 12/19/24 09:52 Enoxaparin Sodium (Lovenox) 40 mg DAILY SC 12/19/24 10:00 12/19/24 18:52 DC 12/19/24 09:52 Sodium Chloride 1,000 ml @ 75 mls/hr [id number] IV 12/19/24 09:00 12/19/24 18:52 DC 12/19/24 10:12 Vital Signs Vital Signs Date Time Temp Pulse Resp B/P (MAP) Pulse Ox O2 Delivery O2 Flow Rate FiO2 12/19/24 17:00 98.0 80 20 133/77 (95) 97 98.0 12/19/24 08:00 Nasal Cannula* 3 32 Physical Exam Gen.: Patient lying in bed in no apparent distress. On supplemental oxygen. Head: Normocephalic, atraumatic. Eyes: EOMI/PERRLA. Ears: Normal hearing. Normal anatomy. Neck/trachea: Trachea midline, supple. Nose: Normal external anatomy. Mouth: Moist mucous membranes. Chest: Decreased air entry bilaterally. No wheezing or rhonchi. Cardiovascular: Positive S1, positive S2. Regular rate and rhythm. Abdomen: Positive bowel sounds in all 4 quadrants. Soft, non-tender, non- distended. : Deferred. Rectal: Deferred. Skin: Warm, dry. Intact. Extremities: 2+ radial pulses bilaterally. No lower extremity edema. Neuro: Awake, alert, oriented x3. No gross motor or sensory deficits. Cranial nerves II through XII intact. Gait not assessed. Labs/Diagnostic Data Labs Test 12/19/24 14:05 12/19/24 05:56 12/19/24 05:39 12/18/24 14:30 Range/Units Potassium Level 4.0 3.5-5.1 mmol/L White Blood Count 13.8 #H 4.4-10.8 10^3/uL Red Blood Count 4.34 L 4.5-5.90 10^6/uL Hemoglobin 12.4 L 13.5-17.5 g/dL Hematocrit 37.2 #L 41.0-53.0 % Mean Corpuscular Volume 85.7 80.0-100.0 fL Mean Corpuscular Hemoglobin 28.5 28.0-32.0 pg Mean Corpuscular Hemoglobin Concent 33.3 32.0-36.0 g/dL Red Cell Distribution Width 15.1 H 11.8-14.3 % Platelet Count 183 140-450 10^3/uL Mean Platelet Volume 7.9 6.9-10.8 fL Neutrophils (%) (Auto) 89.0 H 37.0-80.0 % Lymphocytes (%) (Auto) 7.6 L 10.0-50.0 % Monocytes (%) (Auto) 3.3 0.0-12.0 % Eosinophils (%) (Auto) 0.0 0.0-7.0 % Basophils (%) (Auto) 0.1 0.0-2.0 % Neutrophils # (Auto) 12.3 H 1.6-8.6 10 ^3/uL Lymphocytes # (Auto) 1.0 0.4-5.4 10 ^3/uL Monocytes # (Auto) 0.5 0-1.3 10 ^3/uL Eosinophils # (Auto) 0 0-0.8 10 ^3/uL Basophils # (Auto) 0 0-0.2 10 ^3/uL Nucleated Red Blood Cells 0.0 % Sodium Level 138 136-145 mmol/L Chloride Level 106 98-107 mmol/L Carbon Dioxide Level 24 20-31 mmol/L Anion Gap 8 5-15 Blood Urea Nitrogen 18 9-23 mg/dL Creatinine 1.03 0.700-1.30 mg/dL Glomerular Filtration Rate Calc 80 >90 mL/min BUN/Creatinine Ratio 17.5 10.0-20.0 Serum Glucose 153 H 74-106 mg/dL Calcium Level 9.7 8.7-10.4 mg/dL Total Bilirubin 0.4 0.2-1.0 mg/dL Aspartate Amino Transferase (AST) 12 L 13-40 U/L Alanine Aminotransferase (ALT) 16 7-40 U/L Alkaline Phosphatase 91 46-116 U/L Total Protein 6.4 5.7-8.2 g/dL Albumin 3.9 3.2-4.8 g/dL Lactic Acid Level 1.5 0.4-2.0 mmol/L Urine Color Light-yellow Yellow Urine Clarity Clear Clear Urine pH 5.5 5.0-9.0 Urine Specific [place] 1.024 1.001-1.035 Urine Protein Negative Negative Urine Ketones Trace Negative Urine Blood Negative Negative /uL Urine Nitrite Negative Negative Urine Bilirubin Negative Negative Urine Urobilinogen Normal Negative mg/dL Urine Leukocyte Esterase Negative Negative /uL Urine RBC None seen 0 - 3 /hpf Urine Microscopic WBC 1 0-3 /HPF Urine Squamous Epithelial Cells Few <5 /hpf Urine Bacteria Few H None Seen /hpf Urine Glucose 4+ H Normal mg/dL Urine Opiates Screen Neg NEGATIVE Urine Fentanyl Screen Neg NEGATIVE Urine Barbiturates Screen Neg NEGATIVE Urine Phencyclidine Screen Neg NEGATIVE Urine Amphetamines Screen Neg NEGATIVE Urine Benzodiazepines Screen Neg NEGATIVE Urine Cocaine Screen Neg NEGATIVE Urine Cannabinoids Screen Neg NEGATIVE Test 12/18/24 11:25 12/18/24 09:58 Range/Units Blood Gas Specimen Type Arterial Blood Gas Sample Site Right radial Blood Gas Patient Temperature 37.0 Arterial Blood Date Drawn [id number] Arterial Blood pH 7.359 7.350-7.450 Arterial Blood Partial Pressure CO2 41.2 35.0-48.0 mmHg Arterial Blood Partial Pressure O2 59.1 L 83.0-108.0 mmHg Arterial Blood HCO3 22.7 21.0-28.0 mmol/L Arterial Blood Oxygen Saturation 88.9 L 94.0-98.0 % Arterial Blood Base Excess -2.6 L -2.0-3.0 mmol/L Arterial Blood Oxyhemoglobin 88.0 L 94.0-98.0 % Arterial Blood Carboxyhemoglobin 0.4 L 0.5-1.5 % Arterial Blood Methemoglobin 0.6 0.0-1.5 % Chas Test Yes Blood Gas Total Hemoglobin 14.10 13.5-17.5 g/dL Blood Gas Liter Flow 0.00 Blood Gas Modality Room air FiO2 % 21.0 Troponin I High Sensitivity 14 </=54 ng/L Microbiology Date/Time Source Procedure Growth Status 12/18/24 07:50 Blood Blood Culture - Preliminary NO GROWTH AFTER 24 HOURS OF INCUBATION. Resulted Assessment Impression: Acute hypoxic respiratory failure Dependence on supplemental oxygen Acute exacerbation of COPD Lactic acidosis Obesity Nicotine dependence Cocaine use Plan: Supplemental oxygen 3 LPM NC Titrate to keep O2 sats above 92%. Taper O2 as tolerated. Continue bronchodilators. IV steroids Continue antibiotics Follow up cultures On IV fluids with NS at 75 ml/hr. Monitor renal function. Monitor electrolytes. Supplement as necessary. Monitor ins and outs. Smoking cessation discussed for greater than 10 minutes Counseled against substance use. Diet and lifestyle modifications for weight reduction Obesity - complicates all care GI prophylaxis - Protonix DVT prophylaxis - Lovenox. Prognosis: Poor given patient's multiple co-morbidities. Rest of plan per hospitalist and other consultants. Thank you Dr. Flores, for allowing me to participate in this patient's care. Further recommendations will depend on the patient's clinical course. Please do not hesitate to contact me if you have any questions or concerns. This medical document was created using an electronic medical record system with [employer] dictation system. Although these documentations are being carefully reviewed, there may still be some phonetic and typographical changes. The errors are purely typographical, due to imperfection on the software program, and do not reflect any compromise in the patient's medical care. Plan discussed with: Other (SHEBA Conklin/Dr. Flores) NEIL SYED MD Dec 19, 2024 23:05
== END 2024-12-19 18:07 | disposition home or self-care (01) | DRG 189 ==
LOC: ER 06:31 → OVERFLOW 09:10 → WEST WING 12:23
PROVIDERS: ADMIT Internal Medicine Geriatric Medicine; ATTEND Internal Medicine Geriatric Medicine
DX: J96.01 Acute respiratory failure with hypoxia (principal); J44.1 Chronic obstructive pulmonary disease with (acute) exacerbation; E87.20 Acidosis, unspecified; I16.1 Hypertensive emergency; F14.90 Cocaine use, unspecified, uncomplicated; E66.9 Obesity, unspecified; Z68.29 Body mass index [BMI] 29.0-29.9, adult; F17.210 Nicotine dependence, cigarettes, uncomplicated; J98.4 Other disorders of lung; Z99.81 Dependence on supplemental oxygen; Z71.6 Tobacco abuse counseling
CPT/HCPCS: 36415; 36600; 71045; 80048; 80053; 80307; 81001; 82805; 83605; 84132; 84484; 85025; 87040; 93005; 93306; 94640; 94644; 96365; 96366; 96367; 96368; 96375; 99291; 99292; G0378